=== PATIENT | female | born 1990 ===

== ENCOUNTER 2018-08-16 11:02 | Emergency (ER) | payer OTHER ==
[2018-08-16 11:07] VITALS: TEMP 98.1
[2018-08-16] MEDS ORDERED: Naproxen 550 mg Tab PO STA (11:37)
[2018-08-16] MEDS ORDERED: Naproxen 550 mg Tab PO ONE (11:41)
--- NOTE | 2018-08-16 12:51 | C.PDOC ---
History Of Present Illness 28 y/o female presents to ED stating that she woke up this morning and felt a pulling sensation in her neck and complains of left sided neck pain. Since then, patient cant move her neck or else pain worsens. Patient denies fall or injuries, throat pain, fever, or rash. Time Seen by Provider: 08/16/18 11:27 Chief Complaint (Nursing): Back Pain History Per: Patient History/Exam Limitations: no limitations Onset/Duration Of Symptoms: Hrs Current Symptoms Are (Timing): Still Present Past Medical History Reviewed: Historical Data, Nursing Documentation, Vital Signs Vital Signs: Last Vital Signs Temp 98.1 F 08/16/18 11:04 Pulse 76 08/16/18 11:04 Resp 19 08/16/18 11:04 BP 133/84 08/16/18 11:04 Pulse Ox 99 08/16/18 11:04 Family History: States: No Known Family Hx - Social History Hx Tobacco Use: No Hx Alcohol Use: Yes Hx Substance Use: No - Immunization History Hx Influenza Vaccination: No Hx Pneumococcal Vaccination: No Review Of Systems Constitutional: Negative for: Fever ENT: Negative for: Throat Pain Musculoskeletal: Positive for: Neck Pain (left-sided) Skin: Negative for: Rash Physical Exam - Physical Exam Appears: Non-toxic, In Acute Distress Skin: Warm, Dry Head: Atraumatic, Normacephalic Eye(s): bilateral: Normal Inspection Oral Mucosa: Moist Throat: Normal, No Erythema, No Exudate Neck: No Midline Cervical Tenderness, Other (turned to R side, tenderness to palpation along L trapezius muscle) Chest: Symmetrical Cardiovascular: Rhythm Regular, No Murmur Respiratory: Normal Breath Sounds, No Rales, No Rhonchi, No Wheezing Extremity: Bilateral: Normal Color And Temperature Neurological/Psych: Oriented x3, Normal Speech ED Course And Treatment O2 Sat by Pulse Oximetry: 99 (RA) Pulse Ox Interpretation: Normal - Other Rad Cervical spine XR X-Ray: Read By Radiologist Interpretation: FINDINGS: BONES: Straightening of the cervical spine. No radiographic evidence of fracture or subluxation. DISC SPACES: Normal. SOFT TISSUES: Normal. No prevertebral soft tissue swelling. OTHER FINDINGS: None. IMPRESSION: Straightening of the cervical spine which could be due to the patient's position or due to muscle spasm. Progress Note: Cervical spine XR ordered. Patient was given motrin and valium. C-spine x-ray showed no fractures or listesis. On re-assessment, patient feels better and will be discharged home with some medications. Disposition Counseled Patient/Family Regarding: Studies Performed, Diagnosis, Need For Followup, Rx Given - Disposition Referrals: Hawa Gregory [Staff Provider] - Disposition: HOME/ ROUTINE Disposition Time: 12:50 Condition: STABLE Additional Instructions: FOLLOW UP WITH YOUR DOCTOR IN 1-2 DAYS USE MEDICATIONS NEEDED RETURN TO ER IF SYMPTOMS WORSEN Prescriptions: Diazepam [Valium] 2 mg PO BID PRN #12 tablet PRN Reason: musle spasm Naproxen 375 mg PO BID PRN #20 tablet PRN Reason: pain Instructions: Muscle Spasms (DC) Forms: [employer] (Slovenian) Print Language: AMHARIC - Clinical Impression Clinical Impression: Torticollis - Scribe Statement The provider has reviewed the documentation as recorded by the Montrell Galeana Provider Attestation: All medical record entries made by the Lesleeibjeff were at my direction and personally dictated by me. I have reviewed the chart and agree that the record accurately reflects my personal performance of the history, physical exam, medical decision making, and the department course for this patient. I have also personally directed, reviewed, and agree with the discharge instructions and disposition.
[2018-08-16 12:58] VITALS: BP 121/79; PULSE 79; RESP 16
--- NOTE | 2018-08-16 15:01 | RAD ---
Date of service: 08/16/2018 PROCEDURE: Cervical Spine Radiographs. HISTORY: Pain. COMPARISON: None available. FINDINGS: BONES: Straightening of the cervical spine. No radiographic evidence of fracture or subluxation. DISC SPACES: Normal. SOFT TISSUES: Normal. No prevertebral soft tissue swelling. OTHER FINDINGS: None. IMPRESSION: Straightening of the cervical spine which could be due to the patient's position or due to muscle spasm.
[2018-08-16 15:33] VITALS: O2SAT 99
== END 2018-08-16 12:56 | disposition home or self-care (01) ==
LOC: C.ER 11:02
DX: M43.6 Torticollis (principal)

== ENCOUNTER 2018-10-21 13:31 | Emergency (ER) | payer OTHER ==
[2018-10-21 13:41] VITALS: BP 127/90; PULSE 70; TEMP 98.1; O2SAT 97
--- NOTE | 2018-10-21 13:48 | C.PDOC ---
History Of Present Illness 28 y/o female presents to ED by EMS for medical evaluation s/p mechanical fall after slipping on ice at her daughter's school. She states that she hit the back of her head but denies LOC or any other injuries. She reports headache, dizziness, neck pain, and nausea. She rates the pain 9/10. She denies any weakness, visual disturbances, chest pain, SOB, vomiting, and difficulty ambulating. - HPI Time Seen by Provider: 10/21/18 13:42 Chief Complaint (Nursing): Trauma History Per: Patient History/Exam Limitations: no limitations Onset/Duration Of Symptoms: Hrs (1), Sudden Onset Injury Occurred (Timing): Hours Ago: Description Of Injury (Context): head and neck injury Severity: Severe Pain Scale Rating Of: 9 Associated Symptoms: Dizziness - Fall Fall:Prior To Injury: Slipped Past Medical History Reviewed: Historical Data, Nursing Documentation, Vital Signs Vital Signs: Last Vital Signs Temp 98.1 F 10/21/18 13:40 Pulse 70 10/21/18 13:40 Resp 18 10/21/18 13:40 BP 127/90 10/21/18 13:40 Pulse Ox 97 10/21/18 13:40 Family History: States: CAD, Diabetes, Hypertension - Social History Hx Tobacco Use: No (former smoker) Hx Alcohol Use: Yes Hx Substance Use: No - Immunization History Hx Influenza Vaccination: No Hx Pneumococcal Vaccination: No Review Of Systems Constitutional: Negative for: Fever, Chills, Weakness Eyes: Negative for: Vision Change Cardiovascular: Negative for: Chest Pain Respiratory: Negative for: Shortness of Breath Gastrointestinal: Positive for: Nausea. Negative for: Vomiting, Abdominal Pain Musculoskeletal: Positive for: Neck Pain Neurological: Positive for: Headache, Dizziness Physical Exam - Physical Exam Appears: Non-toxic, No Acute Distress Skin: Normal Color, Warm, Dry Head: Normacephalic, Other (erythema in occipital region) Eye(s): bilateral: Normal Inspection, PERRL Neck: Normal ROM (with pain) Cardiovascular: Rhythm Regular Respiratory: Normal Breath Sounds, No Wheezing Gastrointestinal/Abdominal: Soft, No Tenderness Neurological/Psych: Oriented x3, Normal Speech, Normal Cognition Gait: Steady ED Course And Treatment O2 Sat by Pulse Oximetry: 97 - CT Scan/US Head CT Other Rad Studies (CT/US): Read By Radiologist, Radiology Report Reviewed CT/US Interpretation: Accession No. : [id number]. Patient Name / ID : KYLE BARBER / [id number]. Exam Date : 10/21/2018 14:41:23 ( Approved ). Study Comment : Sex / Age : F / 28Y. Creator : Amanda Main. Dictator : Radha Giron MD. Flight Engineer Helicopter : Environmental Economist : Radha Giron MD. Approver2 : Report Date : 10/21/2018 14:55:58. My Comment : . Date of service: 10/21/2018. PROCEDURE: CT HEAD WITHOUT CONTRAST. HIST ORY: s/p fall. COMPARISON: None available. TECHNIQUE: Axial computed tomography images were obtained through the head/brain without intravenous contrast. Radiation dose: Total exam DLP = 1143.12 mGy-cm. This CT exam was performed using one or more of the following dose reduction techniques: Automated exposure control, adjustment of the mA and/or kV according to patient size, and/or use of iterative reconstruction technique. FINDINGS: HEMORRHAGE: No intracranial hemorrhage. BRAIN: No mass effect or edema. The whitney-white matter differentiation appears intact. VENTRICLES: No hydrocephalus. CALVARIUM: Unremarkable. PARANASAL SINUSES: Unremarkable as visualized. No significant inflammatory changes. MASTOID AIR CELLS: Unremarkable as visualized. No inflammatory changes. OTHER FINDINGS: None. IMPRESSION: No acute intracranial pathology identified. Cervical Spine CT Other Rad Studies (CT/US): Read By Radiologist, Radiology Report Reviewed CT/US Interpretation: Accession No. : [id number]. Patient Name / ID : KYLE BARBER / [id number]. Exam Date : 10/21/2018 14:44:27 ( Approved ). Study Comment : Sex / Age : F / 28Y. Creator : Amanda Main. Dictator : Radha Giron MD. Flight Engineer Helicopter : Environmental Economist : Radha Giron MD. Approver2 : Report Date : 10/21/2018 14:56:06. My Comment : *. Date of service: 10/21/2018. CT cervical spine without IV contrast. Indication: s/p fall. Comparison: Cervical spine radiographs performed 08/16/18. Technique: Axial computed tomography images were obtained of the cervical spine without the use of intravenous contrast. Coronal and sagittal reformatted images were created and reviewed. This CT exam was performed using 1 or more of the following dose reduction techniques: Automated exposure control, adjustment of the MAA and/or kV according to patient size, and/or use of iterative reconstruction technique. Radiation dose: Total exam DLP = 619.33 mGy-cm. Findings: Straightening of the normal cervical lordosis may be related to muscle spasm or positioning. There is no evidence of acute fracture or subluxation. There is preserved alignment, vertebral body height, intervertebral disc spaces. The prevertebral soft tissues and spinolaminar lines appear intact. The dens tip is intact. There is proper alignment of the lateral masses of C1 with the C2 vertebral body. Included portions of the thyroid gland appear unremarkable. Included portions of lung apices appear clear. Impression: Straightening of the normal cervical lordosis may be related to muscle spasm or positioning. No evidence of acute fracture or subluxation. Medical Decision Making Medical Decision Making: Head and Neck Injury Plan: - CT head and Cervical spine without contrast - Morphine and Zofran given - Labs - Reassessed: patient resting in bed; pain significantly improved - Soft neck collar placed - CT Head negative for bleed - CT Cervical Spine negative for fracture - Discussed results with patient - Patient is stable and safe to be discharged - Flexeril and Naproxen given for discharge - return to ED if symptoms persist or worsen - Patient verbalized understanding and is in agreement with plan Disposition Counseled Patient/Family Regarding: Studies Performed, Diagnosis, Need For Followup, Rx Given - Disposition Referrals: Phillip Lowery MD [Medical Doctor] - Disposition: HOME/ ROUTINE Disposition Time: 15:43 Condition: STABLE Additional Instructions: ELISABETH WRIGHT, thank you for letting us take care of you today. Your provider was Mallorie Durham MD/Cheri Leslie PA-C and you were treated for FALL. The emergency medical care you received today was directed at your acute symptoms. If you were prescribed any medication, please fill it and take as directed. It may take several days for your symptoms to resolve. Return to the Emergency Department if your symptoms worsen, do not improve, or if you have any other problems. Please contact your doctor or call one of the physicians/clinics you have been referred to that are listed on the Patient Visit Information form that is included in your discharge packet. Bring any paperwork you were given at discharge with you along with any medications you are taking to your follow up visit. Our treatment cannot replace ongoing medical care by a primary care provider outside of the emergency department. Thank you for allowing the [facility] team to be part of your care today. Prescriptions: Cyclobenzaprine [Flexeril] 5 mg PO TID PRN #30 tab PRN Reason: Muscle Spasm Naproxen [Naprosyn] 500 mg PO BID PRN #30 tablet PRN Reason: Pain, Moderate (4-7) Instructions: Minor Head Injury (DC), Cervical Muscle Strain (DC) - Clinical Impression Clinical Impression: Head injury, Neck muscle strain - PA / PIT HOIST OPERATOR / Resident Statement MD/DO has reviewed & agrees with the documentation as recorded.
[2018-10-21 14:20] LABS: BASO % 0.3 % (0.0-2.0); EOS # 0.1 K/uL (0.0-0.7); EOS % 1.1 % (0.0-4.0); HEMOGLOBIN 12.6 g/dL (11.0-16.0); LYMPH % 22.1 % (20.0-40.0); MEAN CELL VOLUME 90.3 fL (81.0-99.0); MEAN CORPUSCULAR HGB CONC 33.2 g/dL (33.0-37.0); MEAN PLATELET VOLUME 8.8 fL (7.2-11.7); MONO # 0.6 K/uL (0.0-0.8); MONO % 6.9 % (0.0-10.0); NEUT # 6.2 K/uL (1.8-7.0); NEUT % 69.6 % (50.0-75.0); RBC 4.2 Mil/uL (3.80-5.20); WHITE BLOOD COUNT 8.9 K/uL (4.8-10.8)
[2018-10-21 14:29] LABS: INR 1.1; PROTHROMBIN TIME 11.8 SECONDS (9.7-12.2)
[2018-10-21 14:36] LABS: ALB/GLOB RATIO 1.5 (1.0-2.1); ALBUMIN 4.3 g/dL (3.5-5.0); ALT/SGPT 21 U/L (9-52); AST/SGOT 19 U/L (14-36); BLOOD UREA NITROGEN 10 mg/dL (7-17); CALCIUM 9.2 mg/dl (8.6-10.4); GFR NON-AFRICAN AMERICAN > 60
--- NOTE | 2018-10-21 15:13 | CT ---
Date of service: 10/21/2018 PROCEDURE: CT HEAD WITHOUT CONTRAST. HISTORY: s/p fall COMPARISON: None available. TECHNIQUE: Axial computed tomography images were obtained through the head/brain without intravenous contrast. Radiation dose: Total exam DLP = 1143.12 mGy-cm. This CT exam was performed using one or more of the following dose reduction techniques: Automated exposure control, adjustment of the mA and/or kV according to patient size, and/or use of iterative reconstruction technique. FINDINGS: HEMORRHAGE: No intracranial hemorrhage. BRAIN: No mass effect or edema. The whitney-white matter differentiation appears intact. VENTRICLES: No hydrocephalus. CALVARIUM: Unremarkable. PARANASAL SINUSES: Unremarkable as visualized. No significant inflammatory changes. MASTOID AIR CELLS: Unremarkable as visualized. No inflammatory changes. OTHER FINDINGS: None. IMPRESSION: No acute intracranial pathology identified.
--- NOTE | 2018-10-21 15:22 | CT ---
Date of service: 10/21/2018 CT cervical spine without IV contrast Indication: s/p fall Comparison: Cervical spine radiographs performed 08/16/18 Technique: Axial computed tomography images were obtained of the cervical spine without the use of intravenous contrast. Coronal and sagittal reformatted images were created and reviewed. This CT exam was performed using 1 or more of the following dose reduction techniques: Automated exposure control, adjustment of the MAA and/or kV according to patient size, and/or use of iterative reconstruction technique. Radiation dose: Total exam DLP = 619.33 mGy-cm. Findings: Straightening of the normal cervical lordosis may be related to muscle spasm or positioning. There is no evidence of acute fracture or subluxation. There is preserved alignment, vertebral body height, intervertebral disc spaces. The prevertebral soft tissues and spinolaminar lines appear intact. The dens tip is intact. There is proper alignment of the lateral masses of C1 with the C2 vertebral body. Included portions of the thyroid gland appear unremarkable. Included portions of lung apices appear clear. Impression: Straightening of the normal cervical lordosis may be related to muscle spasm or positioning. No evidence of acute fracture or subluxation.
[2018-10-21 15:58] VITALS: RESP 20
== END 2018-10-21 15:57 | disposition home or self-care (01) ==
LOC: C.ER 13:31
DX: S09.90XA Unspecified injury of head, initial encounter (principal); S16.1XXA Strain of muscle, fascia and tendon at neck level, initial encounter; W00.0XXA Fall on same level due to ice and snow, initial encounter
CPT/HCPCS: 70450; 72125; 80053; 85025; 85610; 85730; 96374; 96375; 99285; J2270; J2405